=== PATIENT | female | born 1995 | race Caucasian/White ===

== ENCOUNTER 2022-05-06 20:00 | Emergency (ER) | payer BC ==
[~2022-05-06] VITALS: Ht 160 cm; Wt 60.9 kg
[2022-05-06 20:09] VITALS: BP 117/62
[2022-05-06 21:18] LABS: CLARITY,URINE CLEAR (Clear); COLOR,URINE STRAW (Yellow); GLUCOSE, URINE NEGATIVE (Neg); KETONES,URINE NEGATIVE (Neg); LEUKOCYTE ESTERASE ,URINE NEGATIVE (Neg); NITRITES, URINE NEGATIVE (Neg); OCCULT BLOOD,URINE NEGATIVE (Neg); PROTEIN,URINE NEGATIVE (Neg); URINE HCG NEGATIVE (NEG); UROBILINOGEN,URINE 0.2 E.U/dL (0.2-1.0)
[2022-05-06 21:20] LABS: UA COLLECTION TYPE CLN CATCH MIDSTREAM
[2022-05-06] MEDS ORDERED: ketorolac trometh inj. 60 MG/2 ML VIAL IM ONE (21:30)
[2022-05-06] MEDS ORDERED: cyclobenzaprine 10mg tablet PO ONE (21:30)
[2022-05-06] MEDS ORDERED: LIDO700A32 TOP (21:33)
[2022-05-06] MEDS ORDERED: CYCL-1 PO (21:33)
== END 2022-05-06 21:56 | disposition home or self-care (01) ==
LOC: ER 20:01
DX: M62.830 Muscle spasm of back (principal); Z79.899 Other long term (current) drug therapy
CPT/HCPCS: 81003; 81025; 96372; 99283; J1885